=== PATIENT | male | born 1990 | race American Indian/Alaskan Native ===

== ENCOUNTER 2021-05-15 08:29 | Emergency (ER) | payer OTHER ==
[2021-05-15] MEDS ORDERED: TETRACAINE 0.5% OPHTH SOLN 4ML OU PRN (09:12)
[2021-05-15] MEDS ORDERED: FLUORESCEIN 1 MG STRIP OP ONE (09:12)
--- NOTE | 2021-05-15 09:17 | Emergency Department Report ---
ED General Adult HPI - General Chief complaint: Eye Problems Stated complaint: EYE PROBLEM Time Seen by Provider: 05/15/21 08:47 Source: patient Mode of arrival: Ambulatory Limitations: No Limitations - History of Present Illness Initial comments: 31-year-old -[place] male patient presents with complaints of intermittent right eye irritation for the past 6 months, recurrent starting yesterday. Patient states sensitivity to light and that it feels like there is a foreign body in his eye. He states the eye is painful and rates his pain as a 7/10 in severity. He denies waking up with his eye crusted shut, vision changes, headache, or trauma to his eye. He denies any past medical history. Visine drops are not helping with his symptoms per patient. - Related Data Previous Rx's Medication Instructions Recorded Last Taken Type Acetaminophen/Codeine [Tylenol 1 tab PO Q8H PRN #8 tab 05/15/21 Unknown Rx /Codeine # 3 tab] Erythromycin [Erythromycin Ophth 1 cm OU Q3H 7 Days #1 tube 05/15/21 Unknown Rx Oint] Ibuprofen [Motrin 800 MG tab] 800 mg PO Q8HR PRN #20 tablet 05/15/21 Unknown Rx Allergies Allergy/AdvReac Type Severity Reaction Status Date / Time No Known Allergies Allergy Verified 05/15/21 08:35 ED Review of Systems ROS: Stated complaint: EYE PROBLEM Other details as noted in HPI Constitutional: denies: chills, fever Eyes: eye pain. denies: vision change Musculoskeletal: denies: joint swelling, arthralgia Skin: denies: rash Neurological: denies: headache Hematological/Lymphatic: denies: swollen glands ED Past Medical Hx - Medications Home Medications: Home Medications Medication Instructions Recorded Confirmed Last Taken Type Acetaminophen/Codeine [Tylenol 1 tab PO Q8H PRN #8 tab 05/15/21 Unknown Rx /Codeine # 3 tab] Erythromycin [Erythromycin Ophth 1 cm OU Q3H 7 Days #1 tube 05/15/21 Unknown Rx Oint] Ibuprofen [Motrin 800 MG tab] 800 mg PO Q8HR PRN #20 tablet 05/15/21 Unknown Rx ED Physical Exam - General Limitations: No Limitations General appearance: alert, in no apparent distress - Head Head exam: Present: atraumatic, normocephalic - Eye Eye exam: Present: PERRL, EOMI (No pain with EOMs per patient), conjunctival injection (Mild to moderate right eye; no obvious foreign bodies noted; eyes very watery without purulent discharge noted), other (Tenderness to palpation noted to right upper eyelid without swelling; minimal overlying skin erythema noted). Absent: periorbital swelling, periorbital tenderness Pupils: Present: other (Tiny round corneal abrasion noted right in front of the iris of the right eye; eyelid everted and swept and no foreign bodies are noted) - Respiratory Respiratory exam: Absent: respiratory distress - Cardiovascular Cardiovascular Exam: Present: regular rate - Neurological Exam Neurological exam: Present: alert, oriented X3 - Psychiatric Psychiatric exam: Present: normal affect, normal mood - Skin Skin exam: Present: warm, dry, intact. Absent: rash ED Course Vital Signs 05/15/21 08:35 Temperature 98.7 F Pulse Rate 83 Blood Pressure 140/81 O2 Sat by Pulse 96 Oximetry ED Medical Decision Making - Medical Decision Making 31-year-old -[place] male patient presents with complaints of intermittent right eye irritation for the past 6 months, recurrent starting yesterday. Patient states sensitivity to light and that it feels like there is a foreign body in his eye. He states the eye is painful and rates his pain as a 7/10 in severity. He denies waking up with his eye crusted shut, vision changes, headache, or trauma to his eye. He denies any past medical history. Visine drops are not helping with his symptoms per patient. Small round corneal abrasion noted on Laurent lamp exam without keratitis type pattern. Will treat with erythromycin ointment and pain medication. Given recurrence of symptoms, I do recommend patient follows up with ophthalmology for further evaluation. He is well-appearing, his vitals are within normal limits, he is stable for discharge home. Discussed findings, plan of care, and signs and symptoms that should prompt immediate return to the ED with patient who verbalizes understanding. Critical care attestation.: If time is entered above; I have spent that time in minutes in the direct care of this critically ill patient, excluding procedure time. ED Disposition Clinical Impression: Right corneal abrasion Disposition: HOME / SELF CARE / HOMELESS Is pt being admited?: No Condition: Stable Instructions: Corneal Abrasion Prescriptions: Erythromycin [Erythromycin Ophth Oint] 1 cm OU Q3H 7 Days #1 tube Ibuprofen [Motrin 800 MG tab] 800 mg PO Q8HR PRN #20 tablet PRN Reason: Pain, Moderate (4-6) Acetaminophen/Codeine [Tylenol /Codeine # 3 tab] 1 tab PO Q8H PRN #8 tab PRN Reason: Pain , Severe (7-10) Referrals: NELY NARANJO MD [Staff Physician] - 3-5 Days Forms: Work/School Release Form(ED)
[2021-05-15 10:44] VITALS: BP 131/82
== END 2021-05-15 10:44 | disposition home or self-care (01) ==
LOC: ED 08:29
DX: S05.01XA Injury of conjunctiva and corneal abrasion without foreign body, right eye, initial encounter (principal); X58.XXXA Exposure to other specified factors, initial encounter; Y93.89 Activity, other specified; Y92.89 Other specified places as the place of occurrence of the external cause; Y99.8 Other external cause status
CPT/HCPCS: 99283